=== PATIENT | male | born 1985 | race African-American/Black ===

== ENCOUNTER 2016-09-03 12:01 | Inpatient (IN) | payer MEDICAID ==
[~2016-09-03] VITALS: Ht 177.8 cm; Wt 81.6 kg
[2016-09-03] MEDS ORDERED: DEXTROSE (50%) 50ML SYRG IV ONE (12:45)
[2016-09-03 12:49] LABS: Basophils # (auto) 0 uL; Basophils % (auto) 0.1 % (0.0-2.0); Eosinophils # (auto) 0.1 uL; Eosinophils % (auto) 0.7 % (0.0-7.0); Hematocrit 46.6 % (41.0-53.0); Hemoglobin 15.6 g/dL (13.5-17.5); Lymphocytes # (auto) 0.5 uL; Lymphocytes % (auto) 6.3 % (10.0-50.0); Mean Corpuscular Hemoglobin 30.3 pg (28.0-32.0); Mean Corpuscular Hgb Conc. 33.4 g/dL (32.0-36.0); Mean Corpuscular Volume 90.7 fL (80.0-100.0); Mean Platelet Volume 8.8 fL (7.4-10.4); Monocytes # (auto) 0.2 uL; Monocytes % (auto) 3.3 % (0.0-12.0); Neutrophils # (auto) 6.7 uL; Neutrophils % (auto) 89.6 % (37.0-80.0); Platelet Count (auto) 295 10^3/uL (140-450); Red Cell Distribution Width 14.2 % (11.6-16.0); White Blood Cell 7.5 10^3/uL (4.4-10.8)
[2016-09-03] MEDS ORDERED: SODIUM CHLORIDE 0.9% 2,000 ML IV ONE (13:00)
[2016-09-03 13:10] LABS: BUN/Creatinine Ratio 9.6; Calcium 8.7 mg/dL (8.5-10.1); Potassium 3.8 mmol/L (3.5-5.1)
[2016-09-03 13:12] LABS: Bilirubin, Total 0.9 mg/dL (0.2-1.0); Total Protein 7.8 g/dL (6.4-8.2)
[2016-09-03] MEDS ORDERED: TEMAZEPAM 15 MG CAP PO PRN (15:30)
[2016-09-03] MEDS ORDERED: LACTULOSE 20Gm/30ML SOLN PO PRN (15:30)
[2016-09-03] MEDS ORDERED: NITROGLYCERIN 0.4 MG SL TAB SL PRN (15:30)
[2016-09-03] MEDS ORDERED: HYDROcodone-ACET 5/325MG TAB PO PRN (15:30)
[2016-09-03] MEDS ORDERED: LORazepam 0.5 MG TAB PO PRN (15:30)
[2016-09-03] MEDS ORDERED: cefTRIAXone 1GM/50ML D5W 50 ML IV ONE (15:30)
[2016-09-03] MEDS ORDERED: ACETAMINOPHEN 500 MG TAB PO PRN (15:30)
[2016-09-03] MEDS ORDERED: MORPHINE SULF INJ 2 MG/ML SYRINGE 1ML IV PRN ×2 (15:30)
[2016-09-03] MEDS ORDERED: DEXTROSE (50%) 50ML SYRG IV PRN (15:30)
[2016-09-03] MEDS ORDERED: PROCHLORPERAZINE EDISYLATE 5 MG/ML 2ML VIAL IV PRN (15:30)
[2016-09-03] MEDS ORDERED: ENOXAPARIN SOD 40 MG/0.4 ML SYRINGE SC ONE (16:00)
[2016-09-03] MEDS: FAMOTIDINE (10MG/ML) 2ML VL IV SCH (16:08)
[2016-09-03] MEDS: D5W/SOD CHLO 0.9% 1,000 ML IV SCH (16:08)
[2016-09-03] MEDS: ACCU-CHEK COMFORT CURVE STRIP VI SCH ×3 (16:08→23:41)
[2016-09-03] MEDS ORDERED: BENZTROPINE MESY 0.5 MG TAB PO ONE (16:30)
[2016-09-03 21:44] VITALS: BP 120/77
[2016-09-03 23:03] VITALS: BP 120/77
[2016-09-04] MEDS ORDERED: DIVA250T51 PO ×2 (00:50→00:51)
[2016-09-04] MEDS ORDERED: BEN2I PO (01:51)
[2016-09-04] MEDS: FAMOTIDINE (10MG/ML) 2ML VL IV SCH ×2 (03:32→15:30)
[2016-09-04] MEDS: ACCU-CHEK COMFORT CURVE STRIP VI SCH ×4 (03:32→16:27)
[2016-09-04 04:46] VITALS: BP 128/79
[2016-09-04] MEDS: D5W/SOD CHLO 0.9% 1,000 ML IV SCH (05:04)
[2016-09-04 07:05] LABS: Albumin 3.6 g/dL (3.4-5.0); BUN/Creatinine Ratio 11.1; Bilirubin, Total 0.7 mg/dL (0.2-1.0); Calcium 8.4 mg/dL (8.5-10.1); Potassium 3.4 mmol/L (3.5-5.1); Total Protein 7.2 g/dL (6.4-8.2)
[2016-09-04 08:00] VITALS: BP 117/62
[2016-09-04 08:03] LABS: Urine Bilirubin Negative (Negative); Urine Blood Negative /uL (Negative); Urine Color Yellow (Yellow); Urine Glucose Normal (Normal); Urine Ketone Negative (Negative); Urine Nitrite Negative (Negative); Urine RBC <1 /hpf (0 - 3); Urine Squamous Epithelial Cell FEW /hpf (<5); Urine Urobilinogen Normal (Negative); Urine pH 6.5 (5.0-8.0)
[2016-09-04 08:40] VITALS: BP 117/62
[2016-09-04 09:00] VITALS: BP 117/62
[2016-09-04] MEDS ORDERED: cefTRIAXone 1GM/50ML D5W 50 ML IV SCH (09:00)
[2016-09-04] MEDS ORDERED: BENZTROPINE MESY 0.5 MG TAB PO SCH (10:00)
[2016-09-04] MEDS ORDERED: ENOXAPARIN SOD 40 MG/0.4 ML SYRINGE SC SCH (10:00)
[2016-09-04 13:00] VITALS: BP 140/95
== END 2016-09-04 19:06 | disposition home or self-care (01) | DRG 424 ==
LOC: ER 12:06 → TELE 12:07 → TELE-WESTW 21:05
PROVIDERS: ADMIT Internal Medicine; ATTEND Internal Medicine
DX: E16.1 Other hypoglycemia (principal); F31.9 Bipolar disorder, unspecified; G40.909 Epilepsy, unspecified, not intractable, without status epilepticus; Z59.0 Homelessness; Z83.3 Family history of diabetes mellitus; Z80.9 Family history of malignant neoplasm, unspecified; Z91.14 Patient's other noncompliance with medication regimen
CPT/HCPCS: 36415; 71010; 80053; 80061; 80307; 81001; 82150; 82962; 83036; 83690; 85025; 85652; 86141; 87040; 87081; 93005; 96372; 96374; 96375; 99291; J0696; J3490; J7042